=== PATIENT | male | born 1940 | race Caucasian/White ===

== ENCOUNTER 2021-08-21 13:39 | Outpatient (CLI) | payer MEDICARE, BC ==
[2021-08-21 14:04] LABS: Estimated GFR-MDRD - POC Greater than 90
== END 2021-08-21 13:40 | disposition home or self-care (01) ==
LOC: CT 13:39
PROVIDERS: ATTEND Internal Medicine Cardiovascular Disease
DX: R07.9 Chest pain, unspecified (principal)
CPT/HCPCS: 71260; 82565

== ENCOUNTER 2022-10-01 06:56 | Day surgery (SDC) | payer MEDICARE, BC ==
[2022-09-30 12:11] VITALS: BMI 22.6
[2022-10-01] MEDS ORDERED: Lidocaine 1% w/Epinephrine 1:100K 20 ML VIAL ONE (07:07)
== END 2022-10-01 08:47 | disposition home or self-care (01) ==
LOC: SDC 06:56
PROVIDERS: ATTEND Internal Medicine Cardiovascular Disease
DX: I63.9 Cerebral infarction, unspecified (principal)
CPT/HCPCS: 33286